=== PATIENT | female | born 1995 | race Caucasian/White ===

== ENCOUNTER 2018-01-13 12:17 | Outpatient (REF) | payer MEDICAID, SELFPAY ==
--- NOTE | 2018-01-13 10:40 | ENDO_PTH ---
PATIENT: JAMES SIDHU LOC: [facility] U#:[id number] AGE/SX: 22/F ROOM: RE01/13/[address]: Mica Espinoza : 1995 BED: DIS: 01/13/2018 SPEC #: [id number] RECD: 01/13/18 12:23 STATUS: SIRI REQ #: [id number] PEDRO: 01/13/18 10:[address]: Mica Espinoza DEPT: Surgical Specimen RECD BY: Vida Kim ENTERED: 01/13/18 12:24 SP TYPE: Endo OTHR DR: Flakita Lam Tissues: 1 - ENDOCERVICAL BX/CURRETTE 2 - CERVICAL BIOPSY 3 - CERVICAL BIOPSY Procedures: GROSS AND MICRO LEVEL 4 Comments: [id number]
== END 2018-01-13 12:37 ==
LOC: LBN 12:17
PROVIDERS: PCP Nurse Practitioner Family; Visit Provider Obstetrics & Gynecology Gynecology
DX: N88.8 Other specified noninflammatory disorders of cervix uteri (principal); R87.613 High grade squamous intraepithelial lesion on cytologic smear of cervix (HGSIL)
CPT/HCPCS: 88305

== ENCOUNTER 2018-02-17 12:38 | Emergency (ER) | payer MEDICAID, SELFPAY ==
[2018-02-17 12:45] VITALS: BP 137/75; PULSE 85; RESP 16; TEMP 37; O2SAT 97
--- NOTE | 2018-02-17 14:02 | DI.RAD_ITS ---
SYMPTOMS/DIAGNOSIS: TRAUMA, PATELLAR PAIN LEFT KNEE: Four views. No bone or joint abnormality is identified. The soft tissues are unremarkable. IMPRESSION: Negative examination.
--- NOTE | 2018-02-17 14:10 | ED.GENADUL_ITS ---
Discharge Plan Disposition Patient Disposition: HOME Condition: Stable Discharge Details Chief Complaint: Orthopedic Clinical Impression: Contusion of knee Primary Care Provider: Flakita Lam ED Provider: Nai Jerez Home Meds and New Rx's Prescriptions: Continued medroxyprogesterone [Depo-Provera] 150 mg/mL suspension 150 mg IM Q12W Qty: 1 RF: 3 prazosin 1 mg capsule 2 mg PO DAILY Qty: 60 RF: 0 Discharge Instructions Instructions: Contusion in Adults (ED) Additional Instructions: Please return immediately to the emergency department if you develop any new or worsening symptoms or if you become otherwise concerned. It is extremely important that you make an appointment to be seen by your primary care doctor within the next 1-2 weeks in follow-up for this visit. Referrals: Flakita Lam [Primary Care Provider] - Discharge Data Discharge Date/Time-TO BE ENTERED AT DEPARTURE: 02/17/18 15:47 Medical Decision Making Taylor Mcnair 22-year-old woman with history of bipolar, PTSD, anxiety, depression, GERD presenting to the emergency department with left anterior knee pain after hitting her knee on a coffee table last night. On exam patient is very well and nontoxic appearing. She has tenderness over the patella and anterior proximal tibia. She is bearing weight. Concern for possible patellar versus tibial fracture. Exam/history not consistent with femur fracture, Maisonneuve fracture, infectious process, SI, acute psychosis. Plan for x-rays, ibuprofen. xray shows no fracture. Patient declines knee immobilizer, plan for Ryder bandage for comfort at this time at this time do not have a high suspicion for tibial plateau fracture given mechanism and patient ability to weight-bear without issue. Lengthy discussion with patient regarding return to emergency department precautions and importance of outpatient follow-up with her PCP. She verbalized understanding of the plan and is amenable. Medical Records Medical records reviewed: Yes I reviewed the patient's medical records. Imaging Data Radiologic Study: Attestation: I personally reviewed and interpreted this imaging study as follows: Radiologist's impression: LEFT KNEE: Four views. No bone or joint abnormality is identified. The soft tissues are unremarkable. IMPRESSION: Negative examination. HPI General Mode of arrival: ambulatory . Date/Time Provider Initiated Documentation: 02/17/18 13:04 . Limitations to Documentation: no limitations . Information obtained by: patient, RN notes reviewed and old records reviewed . HPI Narrative: Taylor Mcnair is a 22 y/o woman with history of bipolar, PTSD, GERD, anxiety, depression presenting to the emergency department knee pain. Patient reports that last night she was running in her house when she hit her left anterior knee on a coffee table. She did not fall the ground, did not hit her head, did not lose consciousness. No other injuries. Patient denies any other pain. She reports that she has been able to walk on her left leg since the injury. She is able to straighten the leg fully, but has pain with flexion and cannot fully flex the leg. Patient reports that she has a history of visual hallucinations secondary to schizophrenia that are not abnormal for her. She reports that she saw a ghost last night her home and was running from the ghost. Patient reports this as not unusual for her. She lives at home with her . She denies suicidal ideation or attempts to harm herself, denies worsening of her hallucinations. She reports that she feels safe at home. No recent illnesses. No numbness/tingling/weakness. Related Data Home Medications Medication Instructions Recorded Confirmed medroxyprogesterone 150 mg/mL 150 mg IM Q12W #1 ml 12/12/17 02/17/18 intramuscular suspension prazosin 1 mg capsule 2 mg PO DAILY #60 cap 02/09/18 02/17/18 Previous Rx's Medication Instructions Recorded medroxyprogesterone 150 mg/mL 150 mg IM Q12W #1 ml 12/12/17 intramuscular suspension prazosin 1 mg capsule 2 mg PO DAILY #60 cap 02/09/18 Allergies Allergy/AdvReac Type Severity Reaction Status Date / Time morphine Allergy Severe Anaphylaxsi Verified 02/17/18 12:47 s blueberry Allergy Swelling/Ed Verified 02/17/18 12:47 daniela latex Allergy RASH/HIVES Verified 02/17/18 12:47 venom-honey bee Allergy ANAPHALACTI Verified 02/17/18 12:47 C hydrocodone AdvReac Intermediate Nausea Verified 02/17/18 12:47 amoxicillin AdvReac Unknown MAKES Verified 02/17/18 12:47 HER SICK VOMMITTING MUSHROOMS/PORTOBELLO Allergy Severe BREATHING Uncoded 02/17/18 12:47 ISSUES/SWELLING General Stated Complaint: Orthopedic JACKELINE: 5 Review of Systems Review of Systems Constitutional: denies fevers Eyes: denies eye pain ENT: denies facial pain, dental pain, sore throat Cardiovascular: denies chest pain, edema Respiratory: denies SOB, cough GI: denies abdominal pain, vomiting, diarrhea : denies flank pain MSK: denies back pain, neck pain, myalgias, reports left knee pain Skin: denies rash or skin wound Neuro: denies headaches, numbness/tingling, weakness PFSH Medical History Post traumatic stress disorder (Chronic) Contraception (Acute) HSIL on Pap smear of cervix (Acute 12/18/16) Acid reflux (Resolved) Acromioclavicular joint separation, type 1 (Resolved) Constipation (Resolved) Surgical History Cholecystectomy (08/03/15) Family History Father Alcoholism Other Diabetes Mental disorder Social History household members: spouse and children number of children: 2 Smoking/Tobacco Use Status: Current every day Female Reproductive History Menstrual control method: none History History 2 Para 2 Hx # Term Pregnancies Multiple births Hx # Pregnancies Ectopic pregnancies AB induced Hx Number of Living Children AB spontaneous Exam Narrative Exam Narrative: Constitutional: well and [id number], pleasant, conversing normally HENT: head atraumatic, normocephalic normal inspection, mucous membranes moist Eyes: conjunctiva normal, sclera normal, pupils 3mm b/l Neck: no stridor, normal ROM, trachea midline Resp: normal work of breathing Cardio: normal rate, normal rhythm, PT pulses intact and symmetric Skin: warm, dry, normal color, no rash Neuro: alert and oriented x3, not altered, grossly non-focal, normal tone Ext: no edema, left knee with mild ecchymosis over the patella, patella and anterior proximal tibia tender to palpation. No tenderness palpation of the thigh, proximal fibula, midshaft or distal tib-fib, ankle. Patient is sitting comfortably with knee bent at 90 degrees. Reports pain with further flexion. Can extend the knee fully. Psych: normal mood, normal affect, normal behavior, no apparent hallucinations, no SI Course Vital Signs Temperature 37 C 02/17/18 12:45 Pulse 85 02/17/18 12:45 Respiratory Rate 16 02/17/18 12:45 Blood Pressure 137/75 01/07/19 12:45 Pulse Oximetry 97 02/17/18 12:45 Temperature 37 C 02/17/18 12:45 Temperature Source Skin 02/17/18 12:45 Pulse 85 02/17/18 12:45 Respiratory Rate 16 02/17/18 12:45 Respiratory Effort Non-Labored 02/17/18 12:45 Blood Pressure 137/75 02/17/18 12:45 Blood Pressure Position Sitting 02/17/18 12:45 Pulse Oximetry 97 02/17/18 12:45 Pain Level 3 02/17/18 12:45
[2018-02-17] MEDS: Ibuprofen 600 MG TAB PO (14:30)
== END 2018-02-17 15:47 | disposition home or self-care (01) ==
PROVIDERS: Emergency Provider Student in an Organized Health Care Education/Training Program; PCP Nurse Practitioner Family
DX: S80.02XA Contusion of left knee, initial encounter (principal); W22.03XA Walked into furniture, initial encounter
CPT/HCPCS: 99283; 73564

== ENCOUNTER 2018-08-18 11:08 | Emergency (ER) | payer MEDICAID, SELFPAY ==
[2018-08-18 11:12] VITALS: BP 116/68; PULSE 98; RESP 16; TEMP 36.6; O2SAT 97
--- NOTE | 2018-08-18 11:43 | ED.GENADUL_ITS ---
Discharge Plan Disposition Patient Disposition: HOME Condition: Good Discharge Details Chief Complaint: DentalOral Clinical Impression: Broken tooth-uncomplic Primary Care Provider: Flakita Lam ED Provider: Griffin Patel Home Meds and New Rx's Prescriptions: No Action propranolol 20 mg tablet 20 mg PO BID RF: 0 Vraylar 3 mg capsule 3 mg PO DAILY RF: 0 melatonin 3 mg tablet 9 mg PO HS PRNRF: 0 lamotrigine 100 mg tablet 100 mg PO DAILY RF: 0 dexmethylphenidate [Focalin XR] 10 mg capsule,ER biphasic 50-50 10 mg PO QAM RF: 0 medroxyprogesterone [Depo-Provera] 150 mg/mL suspension 150 mg IM Q12W Qty: 1 RF: 3 cephalexin 500 mg capsule 500 mg PO TID 7 Days Qty: 21 RF: 0 Discharge Instructions Instructions: Dental Caries (ED) Additional Instructions: Continue to observe your symptoms over the next 24 to 48 hours and use 600 mg of ibuprofen with 650-1000 mg of acetaminophen every 6 hours for pain. If you notice any worsening of symptoms please start antibiotic right away otherwise follow-up with a dental provider as soon as possible for reassessment and definitive care of your broken tooth. Return to emergency department immediately for any new or significant worsening of symptoms Referrals: Flakita Lam [Primary Care Provider] - (If unable to follow-up with dental provider) Discharge Data Discharge Date/Time-TO BE ENTERED AT DEPARTURE: 08/18/18 12:11 Medical Decision Making Patient presenting the emergency department for chief complaint of fractured tooth. Patient states 3 days ago when biting down on some food she broke her left rear molar. Patient attempted to get into her dentist but they referred her to the emergency department. Patient states moderate amount of pain and some perceived swelling to the left lower jaw. Physical exam shows partially fractured tooth #17, no erythema surrounding the base of the tooth or surrounding area, no swelling, no appreciable facial swelling and no palpable fluctuance or noted induration. Exam is otherwise unremarkable, no signs of Jacob's angina, peritonsillar abscess, or other signs of infection. Patient's vital signs are stable and patient is afebrile. I do not appreciate any physical exam findings to suggest early dental infection or abscess formation. This was thoroughly discussed with patient but given her perceived swelling she was given a prescription for antibiotic and informed that she should continue to observe her symptoms for the next 24 to 48 hours and if she notes visual facial swelling or worsening of symptoms she may start the antibiotic otherwise the discomfort is secondary to the newly fractured tooth. She was instructed she should follow-up with a dental provider as soon as possible for definitive care of her poor dentition and multiple dental caries. Patient was placed upon amoxicillin while this is listed as an allergy patient states that she had vomiting once as a kid and has not taken it since. I do not feel that this is a sign of anaphylactic allergic reaction but more side effect from the medication and given that it is been a significant amount of time patient is agreeable to using this medication compared to possible side effects of clindamycin. Return precautions were discussed. After discussion of diagnosis and plan of care patient has no further needs, questions, or concerns and states clear understanding to return to the emergency department for any worsening symptoms. HPI General Mode of arrival: ambulatory . Date/Time Provider Initiated Documentation: 08/18/18 11:16 . Limitations to Documentation: no limitations . Information obtained by: patient and RN notes reviewed . History of Present Illness 23 year old F presents to the emergency department with the chief complaint of Dental pain, described as moderate, with intensity rated at 5. Quality is described as aching, and is localized to the mouth (Left lower molar). Patient started experiencing this day(s) (3) and it has been constant. Patient did receive the following treatments prior to arrival, none Related Data Home Medications Medication Instructions Recorded Confirmed medroxyprogesterone 150 mg/mL 150 mg IM Q12W #1 ml 04/09/18 07/29/18 intramuscular suspension cariprazine 3 mg capsule 3 mg PO DAILY 04/10/18 07/29/18 melatonin 3 mg tablet 9 mg PO HS PRN tab 04/10/18 07/29/18 propranolol 20 mg tablet 20 mg PO BID 04/10/18 07/29/18 dexmethylphenidate 10 mg 10 mg PO QAM 07/29/18 07/29/18 capsule,extended release [id number] lamotrigine 100 mg tablet 100 mg PO DAILY 07/29/18 07/29/18 cephalexin 500 mg PO TID 7 Days #21 cap 08/20/18 Previous Rx's Medication Instructions Recorded medroxyprogesterone 150 mg/mL 150 mg IM Q12W #1 ml 04/09/18 intramuscular suspension cephalexin 500 mg PO TID 7 Days #21 cap 08/20/18 Allergies Allergy/AdvReac Type Severity Reaction Status Date / Time morphine Allergy Severe Anaphylaxsi Verified 07/29/18 13:47 s blueberry Allergy Swelling/Ed Verified 07/29/18 13:47 daniela latex Allergy RASH/HIVES Verified 07/29/18 13:47 venom-honey bee Allergy ANAPHALACTI Verified 07/29/18 13:47 C hydrocodone AdvReac Intermediate Nausea Verified 07/29/18 13:47 amoxicillin AdvReac Unknown MAKES Verified 07/29/18 13:47 HER SICK VOMMITTING MUSHROOMS/PORTOBELLO Allergy Severe BREATHING Uncoded 07/29/18 13:47 ISSUES/SWELLING General Stated Complaint: DentalOral JACKELINE: 4 Review of Systems Constitutional Denies chills and Denies fever(s) ENT Reports as per HPI, Reports dental pain, Denies otalgia, Reports mouth pain, Denies sore throat, Denies throat swelling and Denies tongue swelling Cardiovascular Denies chest pain Respiratory Denies cough Allergic/Immunologic Denies throat swelling and Denies tongue swelling PFSH Medical History Post traumatic stress disorder (Chronic) Contraception (Acute) HSIL on Pap smear of cervix (Acute 12/18/16) Endometriosis (Chronic) Acid reflux (Resolved) Acromioclavicular joint separation, type 1 (Resolved) Constipation (Resolved) Surgical History Cholecystectomy (08/03/15) Family History Father Alcoholism Other Diabetes Mental disorder Social History Smoking/Tobacco Use Status: Current every day Tobacco Type: cigarettes Alcohol Intake: current Alcohol Intake frequency: 0-2 drinks per day Drug use: Never Substance use type: marijuana Household members: spouse and children Number of Children: 2 Do you feel safe at home: Yes Do you feel safe in your relationship?: Yes Female Reproductive History Menstrual control method: progesterone injection History History 2 Para 2 Hx # Term Pregnancies Multiple births Hx # Pregnancies Ectopic pregnancies AB induced Hx Number of Living Children AB spontaneous Exam Const General: cooperative Orientation: alert, awake and oriented x3 Limitations: mental status not altered HENMT Head: normal to inspection, normocephalic and atraumatic Ears: hearing grossly normal bilaterally, normal mastoids bilaterally and no periauricular adenopathy General nose exam: external nose normal Mouth: oropharynx normal, no drooling, no muffled voice, normal tongue and no trismus Teeth and gingiva: caries, poor dentition and other (Partially fractured tooth #17, no erythema, no swelling) Throat: posterior oropharynx normal, tonsils normal and uvula midline Eyes General: appearance normal, both eyes and all related structures Pupils: PERRL Neck Neck: normal visual inspection, full ROM, no lymphadenopathy, no meningeal signs, trachea midline, supple, no anterior neck swelling and no midline deformity Resp Effort & Inspection: normal respiratory effort and able to speak in complete sentences Course Vital Signs Temperature 36.6 C 08/18/18 11:12 Pulse 98 H 08/18/18 11:12 Respiratory Rate 16 08/18/18 11:12 Blood Pressure 116/68 08/18/18 11:12 Pulse Oximetry 97 08/18/18 11:12 Temperature 36.6 C 08/18/18 11:12 Temperature Source Oral 08/18/18 11:12 Pulse 98 H 08/18/18 11:12 Respiratory Rate 16 08/18/18 11:12 Blood Pressure 116/68 08/18/18 11:12 Blood Pressure Position Sitting 08/18/18 11:12 Pulse Oximetry 97 08/18/18 11:12 Oxygen Delivery Method Room Air 08/18/18 11:12 Oxygen Flow Rate 0 08/18/18 11:12
== END 2018-08-18 12:11 | disposition home or self-care (01) ==
PROVIDERS: Emergency Provider Nurse Practitioner Family; PCP Nurse Practitioner Family
DX: S02.5XXA Fracture of tooth (traumatic), initial encounter for closed fracture (principal); X58.XXXA Exposure to other specified factors, initial encounter
CPT/HCPCS: 99283

== ENCOUNTER 2018-08-20 10:50 | Emergency (ER) | payer MEDICAID, SELFPAY ==
[2018-08-20 10:52] VITALS: BP 123/61; PULSE 87; RESP 14; TEMP 36.6; O2SAT 99
--- NOTE | 2018-08-20 11:08 | ED.GENADUL_ITS ---
Discharge Plan Disposition Patient Disposition: HOME Condition: Improving Discharge Details Chief Complaint: Dizzy/Sync Clinical Impression: Urinary tract infection Primary Care Provider: Flakita Lam ED Provider: Alexey Thomas Home Meds and New Rx's Prescriptions: No Action propranolol 20 mg tablet 20 mg PO BID RF: 0 Vraylar 3 mg capsule 3 mg PO DAILY RF: 0 melatonin 3 mg tablet 9 mg PO HS PRNRF: 0 lamotrigine 100 mg tablet 100 mg PO DAILY RF: 0 dexmethylphenidate [Focalin XR] 10 mg capsule,ER biphasic 50-50 10 mg PO QAM RF: 0 medroxyprogesterone [Depo-Provera] 150 mg/mL suspension 150 mg IM Q12W Qty: 1 RF: 3 amoxicillin 500 mg capsule 500 mg PO BID Qty: 14 RF: 0 Medical Decision Making 23-year-old female presents from home with her . She was in the shower when she felt lightheaded. She was noted to have her eyes roll up and some gentle twitching of both limbs. sat her on the ground. She had no prolonged loss of conscious, no tongue biting or incontinence. She had no postictal state. She improved and minutes time. She now complains of dull, achy, right-sided headache. 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 Her vital signs are normal. She is neurologically intact. Screening laboratories obtained, patient given fluid bolus, referred for CT scan of the head as well as chest X ray. Patient has evidence of urinary tract infection with positive nitrites and leuk esterase. Labs are otherwise reassuring. Consistent with acute urinary tract infection. Patient given a parenteral dose of antibiotics and is improving with fluids as well. I will place her on a course of Keflex. She is stable and improved Lab Data Lab results reviewed: Yes I reviewed the patient's lab results. Laboratory Results - last 24 hr 08/20/18 08/20/18 08/20/18 11:19 11:19 11:25 WBC 9.90 RBC 4.48 Hgb 13.8 Hct 40.5 MCV 90.4 MCH 30.8 MCHC 34.1 RDW 12.5 Plt Count 347 MPV 9.5 Immature Gran % 0.3 Neutrophils % 63.2 Lymphocytes % 27.0 Monocytes % 6.9 Eosinophils % 2.0 Basophils % 0.6 Absolute Neutrophils 6.26 Absolute Lymphocytes 2.67 Absolute Monocytes 0.68 Absolute Eosinophils 0.20 Absolute Basophils 0.06 Sodium 140 Potassium 3.9 Chloride 105 Carbon Dioxide 24.9 Anion Gap 10.1 BUN 16 Creatinine 0.99 Estimated GFR/1.73 m2 >= 60.00 Glucose 84 Calcium 9.5 Magnesium 1.9 Total Bilirubin 0.4 AST 3 L ALT 11 L Alkaline Phosphatase 55 Troponin I < 0.05 Total Protein 7.7 Albumin 4.4 Urine Color Yellow Urine Clarity Sl cloudy Urine pH 6.0 Ur Specific [place] 1.025 Urine Protein Trace H Urine Ketones Trace H Urine Blood Negative Urine Nitrite Positive H Urine Bilirubin Negative Urine Urobilinogen 0.2 Ur Leukocyte Esterase Trace H Urine RBC Negative Urine WBC 10-20 Ur Epithelial Cells Few Urine Crystals Negative Urine Bacteria Many Urine Mucus Moderate Ur Culture Indicated? Yes Urine Glucose Negative HPI General Mode of arrival: ambulatory . Date/Time Provider Initiated Documentation: 08/20/18 10:51 . Limitations to Documentation: no limitations . Information obtained by: patient and family . History of Present Illness 23 year old F presents to the emergency department with the chief complaint of Near syncope, witnessed by , described as moderate, and is localized to the head. Patient reports no radiation. Patient started experiencing this minute(s) and it has been now resolved. No relieving factors improve symptom(s), No exacerbating factors reported . Patient notes other (Mild headache. No focal weakness. No numbness or tingling. No recent illness.). Patient did receive the following treatments prior to arrival, none Related Data Home Medications Medication Instructions Recorded Confirmed medroxyprogesterone 150 mg/mL 150 mg IM Q12W #1 ml 04/09/18 07/29/18 intramuscular suspension cariprazine 3 mg capsule 3 mg PO DAILY 04/10/18 07/29/18 melatonin 3 mg tablet 9 mg PO HS PRN tab 04/10/18 07/29/18 propranolol 20 mg tablet 20 mg PO BID 04/10/18 07/29/18 dexmethylphenidate ER 10 mg 10 mg PO QAM 07/29/18 07/29/18 capsule,extended release [id number] lamotrigine 100 mg tablet 100 mg PO DAILY 07/29/18 07/29/18 amoxicillin 500 mg PO BID #14 cap 08/18/18 Previous Rx's Medication Instructions Recorded medroxyprogesterone 150 mg/mL 150 mg IM Q12W #1 ml 04/09/18 intramuscular suspension amoxicillin 500 mg PO BID #14 cap 08/18/18 Allergies Allergy/AdvReac Type Severity Reaction Status Date / Time morphine Allergy Severe Anaphylaxsi Verified 07/29/18 13:47 s blueberry Allergy Swelling/Ed Verified 07/29/18 13:47 daniela latex Allergy RASH/HIVES Verified 07/29/18 13:47 venom-honey bee Allergy ANAPHALACTI Verified 07/29/18 13:47 C hydrocodone AdvReac Intermediate Nausea Verified 07/29/18 13:47 amoxicillin AdvReac Unknown MAKES Verified 07/29/18 13:47 HER SICK VOMMITTING MUSHROOMS/PORTOBELLO Allergy Severe BREATHING Uncoded 07/29/18 13:47 ISSUES/SWELLING General Stated Complaint: Dizzy/Sync JACKELINE: 3 Review of Systems Review of Systems Denies chest pain, palpitations, shortness of breath. No tongue biting. States she had a question of temporal lobe epilepsy in the past [facility] Medical History Post traumatic stress disorder (Chronic) Contraception (Acute) HSIL on Pap smear of cervix (Acute 12/18/16) Endometriosis (Chronic) Acid reflux (Resolved) Acromioclavicular joint separation, type 1 (Resolved) Constipation (Resolved) Surgical History Cholecystectomy (08/03/15) Family History Father Alcoholism Other Diabetes Mental disorder Social History Smoking/Tobacco Use Status: Current every day Tobacco Type: cigarettes Alcohol Intake: current Alcohol Intake frequency: 0-2 drinks per day Drug use: Never Substance use type: marijuana Household members: spouse and children Number of Children: 2 Do you feel safe at home: Yes Do you feel safe in your relationship?: Yes Female Reproductive History Menstrual control method: progesterone injection History History 2 Para 2 Hx # Term Pregnancies Multiple births Hx # Pregnancies Ectopic pregnancies AB induced Hx Number of Living Children AB spontaneous Exam Narrative Exam Narrative: GEN: awake, alert, oriented 3. Pleasant, well groomed, interactive. HEAD: Normocephalic, atraumatic ENT: Mucous membranes moist, oropharynx unremarkable, External ear exam unremarkable EYES: PERRL, EOMI NECK: Full ROM, no DELTA, no menigismus CHEST/RESP: Nontender, clear to auscultation bilateral, no wheeze/rhonchi/rales CARDIOVASCULAR: RRR, no murmur, rub hilary. 2+ Rad pulse bilateral ABDOMEN: Soft, nontender, no mass. +Bowel sounds EXT: Full ROM, no edema, no rash Neuro: Grossly normal neurologic exam, conversant, interactive. Cranial nerves II through XII intact. Psych: Speech fluent, thoughts congruent, affect normal Course Vital Signs Temperature 36.6 C 08/20/18 10:52 Pulse 87 08/20/18 10:52 Respiratory Rate 14 08/20/18 10:52 Blood Pressure 123/61 08/20/18 10:52 Pulse Oximetry 99 08/20/18 10:52 Temperature 36.6 C 08/20/18 10:52 Temperature Source Temporal Artery Scan 08/20/18 10:52 Pulse 87 08/20/18 10:52 Respiratory Rate 14 08/20/18 10:52 Respiratory Effort Non-Labored 08/20/18 10:55 Blood Pressure 123/61 08/20/18 10:52 Blood Pressure Position Sitting 08/20/18 10:52 Pulse Oximetry 99 08/20/18 10:52 Oxygen Delivery Method Room Air 08/20/18 10:52 Oxygen Flow Rate 0 08/20/18 10:52 Pain Level 10 08/20/18 10:52
[2018-08-20 11:24] LABS: Abs Immature Grans 0.03 k/cumm (0.0-0.09); Absolute Basophil Count 0.06 k/cumm (0.0-0.2); Absolute Lymphocyte Count 2.67 k/cumm (1.2-3.4); Absolute Monocyte Count 0.68 k/cumm (0.11-0.7); Absolute Neutrophil Count 6.26 k/cumm (1.2-6.7); Basophils % 0.6; HCT 40.5 % (36.0-46.0); HGB 13.8 g/dL (12.0-15.5); Immature Grans % 0.3; Mean Corp. HGB Concentration 34.1 g/dL (32.0-36.0); Mean Corpuscular Hemoglobin 30.8 pg (27.0-33.0); Mean Corpuscular Volume 90.4 fL (80-95); Mean Platelet Volume 9.5 fL (8.0-11.0); Monocytes % 6.9; Neutrophils % 63.2; Platelet Count 347 x1000/uL (130-400); RBC 4.48 m/cumm (4.00-5.20); RBC Distribution Width 12.5 % (11.7-14.6)
[2018-08-20 11:29] LABS: Bilirubin Negative (Negative); Blood Negative (Negative); Clarity Sl Cloudy (Clear); Glucose Negative (Negative); Ketones Trace mg/dL (Negative); Leukocyte Esterase Trace (Negative); Nitrite Positive (Negative); Specific Gravity 1.025 (1.005-1.025); Urobilinogen 0.2 EU/dL (Up TO 0.2)
--- NOTE | 2018-08-20 11:34 | DI.CT_ITS ---
SYMPTOM/DIAGNOSIS: NEAR SYNCOPE, RT HEADACHE CRANIAL CT (WITHOUT CONTRAST): A noncontrast cranial CT was performed. The ventricular system is normal in appearance. There is no evidence of an intracranial mass lesion. There is no evidence of a subdural or epidural hematoma. No focal areas of decreased attenuation are seen. CONCLUSION: Normal noncontrast Cranial CT.
--- NOTE | 2018-08-20 11:38 | DI.RAD_ITS ---
SYMPTOMS/DIAGNOSIS: NEAR SYNCOPE PA AND LATERAL CHEST: The heart is normal in size. The lungs are clear. The mediastinal structures and pleura appear intact. CONCLUSION: Normal chest.
[2018-08-20 11:41] LABS: Bacteria Many HPF (Negative); C & S Indicated? Yes; Crystals Negative HPF (Negative); Epithelial Cells Few HPF (Negative); Mucus Moderate (Negative); RBC Negative (0-2)
[2018-08-20] MEDS: Normal Saline 1,000 ML 1000 ML IV (11:41)
[2018-08-20 12:04] VITALS: RESP 20
[2018-08-20 12:05] LABS: ALT 11 U/L (12-78); Albumin 4.4 g/dL (3.4-5.0); Alkaline Phosphatase 55 U/L (46-116); Anion Gap 10.1 mmol/L (3-11); BUN 16 mg/dL (7-18); Bilirubin, Total 0.4 mg/dL (0.2-1.0); CO2 24.9 mmol/L (21.0-32.0); CREATININE 0.99 mg/dL (0.55-1.02); Calcium 9.5 mg/dL (8.5-10.1); Chloride 105 mmol/L (98-107); Glucose 84 mg/dL (70-100); Magnesium 1.9 mg/dL (1.8-2.4); Potassium 3.9 mmol/L (3.5-5.1); Sodium 140 mmol/L (136-145); Total Protein 7.7 g/dL (6.4-8.2)
[2018-08-20 12:06] LABS: AST 3 U/L (15-37); Troponin I < 0.05 ng/mL (0.00-0.06)
[2018-08-20] MEDS: cefTRIAXone 1 GM/50 ML BAG IVPB (12:13)
[2018-08-20 12:30] VITALS: BP 123/61; PULSE 87; RESP 20; TEMP 36.6; O2SAT 99
== END 2018-08-20 12:35 | disposition home or self-care (01) ==
PROVIDERS: Emergency Provider Emergency Medicine; PCP Nurse Practitioner Family
DX: N39.0 Urinary tract infection, site not specified (principal); B96.20 Unspecified Escherichia coli [E. coli] as the cause of diseases classified elsewhere
CPT/HCPCS: 36415; 80053; 81025; 87077; 96361; 96365; 99284; 70450; 71046; 81003; 81015; 83735; 84484; 85025; 87086; 87186; J0696

== ENCOUNTER 2018-09-26 11:56 | Outpatient (CLI) | payer MEDICAID, SELFPAY ==
[2018-09-26 12:47] LABS: HCT 41.8 % (36.0-46.0); Mean Corp. HGB Concentration 33.5 g/dL (32.0-36.0); Mean Corpuscular Hemoglobin 30.3 pg (27.0-33.0); Mean Corpuscular Volume 90.5 fL (80-95); Mean Platelet Volume 9.4 fL (8.0-11.0); Platelet Count 432 x1000/uL (130-400); RBC 4.62 m/cumm (4.00-5.20); RBC Distribution Width 12.7 % (11.7-14.6); White Blood Cell Count 10.99 k/cumm (4.4-10.8)
[2018-09-26 14:54] LABS: HCG Quant, Pregnancy < 1 mIU/mL (1-3)
== END 2018-09-26 12:16 ==
PROVIDERS: PCP Nurse Practitioner Family; Visit Provider Obstetrics & Gynecology Gynecology
DX: Z30.2 Encounter for sterilization (principal); Z30.09 Encounter for other general counseling and advice on contraception; Z01.818 Encounter for other preprocedural examination; Z01.812 Encounter for preprocedural laboratory examination
CPT/HCPCS: 36415; 85027; 86850; 86900; 86901; 84702

== ENCOUNTER 2018-10-01 06:06 | Day surgery (SDC) | payer MEDICAID, SELFPAY ==
[2018-10-01] VITALS (8 sets, daily range): BP systolic 115–135; BP diastolic 67–80; PULSE 66–86; RESP 13–29; TEMP 36.5–36.8; O2SAT 96–99
[2018-10-01] MEDS: Lactated Ringers 1,000 ML 125 ML IV (06:55)
[2018-10-01] MEDS: Bupivacaine 0.25% Pres-Free 30 ML VIAL (08:04)
--- NOTE | 2018-10-01 08:18 | FALL_PTH ---
PATIENT: JAMES SIDHU LOC: [facility] U#:[id number] AGE/SX: 23/F ROOM: RE10/01/[address]: Mica Espinoza : 1995 BED: DIS: 10/01/2018 SPEC #: [id number] RECD: 10/01/18 12:48 STATUS: SIRI REMeli #: [id number] PEDRO: 10/01/18 08:[address]: Mica Espinoza DEPT: Surgical Specimen RECD BY: Vida Kim ENTERED: 10/01/18 12:50 SP TYPE: Fall OTHR DR: Corwin Lawrence Tissues: 1 - FALLOPIAN TUBE (STERILIZATION) 2 - FALLOPIAN TUBE (STERILIZATION) Procedures: GROSS AND MICRO LEVEL 2 Comments: [id number]
--- NOTE | 2018-10-01 08:48 | W.PM.DSUDISC ---
Discharge Plan Disposition Patient Disposition: HOME Condition: Good Discharge Details Reason For Visit: laparoscopic bilateral salpingectomy Attending Provider: Mica Espinoza Primary Care Provider: Corwin Lawrence Home Meds and New Rx's Prescriptions: No Action propranolol 20 mg tablet 20 mg PO BID RF: 0 Vraylar 3 mg capsule 3 mg PO DAILY RF: 0 lamotrigine 100 mg tablet 100 mg PO DAILY RF: 0 dexmethylphenidate [Focalin XR] 10 mg capsule,ER biphasic 50-50 10 mg PO QAM RF: 0 oxycodone-acetaminophen [Percocet] 5-325 mg tablet 1 tab PO Q6H MDD 4 PRN (Reason: pain) Qty: 4 RF: 0 ibuprofen 600 mg tablet 600 mg PO Q6H PRN (Reason: pain) Qty: 60 RF: 1 medroxyprogesterone [Depo-Provera] 150 mg/mL suspension 150 mg IM Q12W Qty: 1 RF: 3 Discharge Instructions Additional Instructions: Take Ibuprofen 600mg every six hours as prescribed. You may use Percocet 5/325mg every 6 hours for breakthrough pain. Stand Alone Forms: [facility] Post Gynecology Surgery Activity:: Activity as Tolerated Diet:: As Tolerated DS: Diagnosis Discharge Diagnosis (1) Encounter for sterilization: Status: Acute
[2018-10-01] MEDS: fentaNYL 100 MCG/2 ML VIAL IVP (09:17)
--- NOTE | 2018-10-02 17:37 | W.PM.OP ---
Date of service: 10/01/18 Time of Service: 17:50 Operative Note DATE OF PROCEDURE: 10/01/18 PRE-OP DIAGNOSIS: Multiparity desiring permanent sterilization POST-OP DIAGNOSIS: same PROCEDURE: Laparoscopic bilateral salpingectomy BONDING MACHINE SETTER: Nai Trivedi ANESTHESIA: ANUJA ESTIMATED BLOOD LOSS: 0 PATHOLOGY: other (Bilateral fallopian tubes to pathology) COMPLICATIONS: None Patient was transported to: PACU Patient's condition: stable Indications: 23-year-old multiparous female who desires permanent sterilization. She had been counseled about and declined alternatives to permanent sterilization. Findings: Normal pelvis bilateral adnexa and upper abdomen Procedure Description: Patient was taken to the operating room where she is placed in the dorsal supine position and general endotracheal anesthesia was administered without difficulty. She was prepped and draped in the usual sterile fashion. SCDs were in place and no antibiotics were administered. A surgical timeout was performed. Attention was turned to the patient's abdomen where quarter percent Marcaine was used to infiltrate the base of the umbilicus. A 1 cm skin incision was made in a vertical fold. A transabdominal ultrasound was used to measure the depth of the subcutaneous tissue and the skin around the umbilicus was tented up with penetrating towel clips. A varies needle attached to carbon dioxide flow was inserted under ultrasound guidance with entry into the abdomen visualized along with a drop in the intra-abdominal pressure. Pneumoperitoneum was achieved and a 5 mm Visiport trochar was introduced through the umbilical incision and intra-abdominal placement confirmed by use of the laparoscope. Patient was placed in Trendelenburg and under direct visualization two 5 mm ports were placed in the right and left lower quadrants respectively after infiltration of the sites with quarter percent Marcaine and incision of the skin with a scalpel. The abdomen and pelvis were inspected as noted above. The right fallopian tube was located, grasped and followed out to its fimbriated end a LigaSure device was then used to clamp cauterize and transect the proximal right fallopian tube of the right uterine cornua. LigaSure was then used to sequentially clamp, cauterized and transected the mesosalpinx and attachments to the right ovary at the fimbriated end. Transected the fallopian tube was then delivered intact through the R lower 5mm port. The left fallopian tube was grasped, followed out to its fimbriated end, sequentially cauterized and transected along the mesosalpinx to the left uterine cornua. The left uterine cornua was then cauterized and transected. The left fallopian tube was delivered through the right 5 mm trocar. Both pedicles were noted to be hemostatic. Final inspection of the pedicles was performed and under direct visualization both lower trochars were removed and the sites found to be hemostatic. Pneumoperitoneum reduced and the 5 mm trocar umbilical port was removed and all skin incisions were sealed with skin glue. The patient was awakened, extubated and transported to recovery area in stable condition all sponge lap needle counts correct x2.
== END 2018-10-01 10:24 | disposition home or self-care (01) ==
PROVIDERS: PCP Nurse Practitioner Family; Visit Provider Obstetrics & Gynecology Gynecology
PROC: (CPT 58661; principal; 2018-10-01 07:30)
DX: Z30.2 Encounter for sterilization (principal); F17.210 Nicotine dependence, cigarettes, uncomplicated
CPT/HCPCS: 58661; 88302; J1100; J1885; J2250; J2405; J3010